=== PATIENT | female | born 1955 | race Caucasian/White ===

== ENCOUNTER → 2016-10-15 | Outpatient (CLI) | payer BC ==
[~2016-10-15] MED LIST: ANAS1TAB6 PO; IBUP600T44 PO; PROC1TAB5 PO
[2016-10-15 14:10] VITALS: BP 123/78; PULSE 74; TEMP 36.7; O2SAT 95
--- NOTE | 2016-10-15 15:21 | Radiation Oncology Follow-Up ---
Radiation Oncology Follow-Up Date of Visit Oct 15, 2016. Reason For Visit Ms. Esquivel is seen in follow-up today for her regularly scheduled follow-up visit. Radiation Completion Date finished 03-12-2016 History of Present Illness Ms. Esquivel is a 61-year-old female who has a family history of breast cancer. The patient's mother was diagnosed at age 80 with breast cancer. She was treated with surgery and radiation and is presently alive without disease at age 94. She has 2 sisters ages 63 and 66 who are alive and well without history of breast cancer. The patient unfortunately had her most recent screening mammogram over 20 years ago. She recently noted a palpable mass in the right breast self detected in June 2015. She underwent bilateral digital mammograms and targeted bilateral ultrasounds on 07/13/2015. Mammogram of the left breast demonstrated a small, 2 mm cluster of predominantly punctate calcifications in the left upper outer quadrant. These were felt to be probably benign. In the left upper outer quadrant anteriorly 8-10 mm oval mass with obscured margins was noted. In addition a possible 7 mm oval mass with obscured margins was noted in the left central breast middle depth. In the right breast a palpable mass was identified. This was irregular and measured 3.4 cm. At the site of this lesion pleomorphic calcifications were noted within the mass as well as extending anterior and posterior to the mass. The extent of the calcifications measured at least 8.8 cm. The mass and calcifications were highly suspicious for malignancy. In the right middle breast at approximately 3 o'clock position there are 2 adjacent irregular non- circumscribed masses measuring 1.3 and 1.5 cm. Pleomorphic calcifications are also seen in association with these masses and these are also highly suspicious for malignancy. Targeted ultrasound of the palpable lump in the right breast revealed an irregular hypoechoic solid mass which was difficult to measure but was at least 3.6 cm. This correlated with the mammographic mass and was highly suspicious for malignancy. In the right breast at the 3 o'clock position 3 cm from the nipple was an irregular hypoechoic solid mass measuring 1.1 x 0.9 x 0.9 cm and adjacent to this approximate 2 cm from the nipple is another irregular hypoechoic solid mass seen which measures 1.2 x 1.0 x 1.0 cm. These 2 masses are highly suspicious for malignancy by ultrasound criteria. Targeted ultrasound was performed of the right axilla. In the right upper-outer quadrant approximate 10-11 cm in the nipple were 2 adjacent rounded masses. One measured 0.8 x 0.8 cm and the other measured 0.8 x 0.6 cm. It was unclear if these represented abnormal low right axillary lymph nodes versus satellite lesions. Recommended ultrasound-guided biopsies of the axilla and breast masses was made. Targeted ultrasound of the left breast revealed a hypoechoic solid appearing mass measuring 1.0 x 0.8 x 1.0 cm it corresponded to the mammographic masses and was indeterminate. Recommended ultrasound-guided biopsy for further evaluation. Targeted ultrasound was performed to the left central breast in the region of the other mammographic mass however no sonographic correlate was seen. On 07/26/2015 the patient underwent biopsy of the right breast 10 o'clock position, biopsy of the right upper outer quadrant/low axillary mass, biopsy of the right 3:00 breast mass and biopsy of the left upper outer quadrant breast mass at the 2 to 3 o'clock position. The final diagnosis of the right breast 10 :00 mass revealed an infiltrating ductal carcinoma Jennifer grade 2 of 3. The tumor measured up to 1.1 cm on the core biopsy. DCIS was noted solid with focal necrosis and nuclear grade 2 of 3. No lymphovascular invasion was identified and no LCIS was identified. The microcalcifications were associated with the DCIS. Estrogen receptors were positive (>90%, strong). Progesterone receptors were positive (90%, moderate to strong). HER-2/gilles overexpression was 2+ (20%, moderate). Biopsy of the right upper outer quadrant/low axillary mass was positive for moderately differentiated ductal carcinoma. Biopsy of the right 3:00 breast mass revealed infiltrating ductal carcinoma Hackberry grade 3 of 3 measuring up to 0.9 cm on the core biopsy. DCIS was identified solid with necrosis and nuclear grade 2 of 3. No lymphovascular invasion was noted. Estrogen receptor positive (90%, strong). Progesterone receptor was positive (70%, moderate). HER-2/gilles overexpression was negative (0). Biopsy of the left breast upper-outer quadrant 2 to 3 o'clock position revealed fibroadenoma negative for DCIS and negative for invasive carcinoma. The tumors at the 3:00 and 10 o'clock position were both negative for HER-2/gilles amplification by FISH. Case: [id number]. On 08/07/2015 patient underwent a staging PET/CT scan. This revealed a total of 5 FDG avid lesions within the right breast with a dominant mass within the upper-outer quadrant measuring 3.5 cm with an SUV max of 14.5. There are at least 5 FDG avid right axillary nodes. The dominant lymph node measures 1.2 x 1.7 cm with an SUV max of 6. There is a single FDG avid right subpectoral lymph node measuring 0.9 cm. No abnormal uptake is noted within the left breast abdomen or pelvis. No FDG avid bony lesions appreciated. The patient was seen by Dr. Ferreira. He recommended right simple breast mastectomy with axillary staging. This was performed on 08/11/2015. 2 primary right breast tumors were noted. Tumor #1 was at the 10 o'clock position and was an invasive ductal carcinoma, Jennifer grade 3 of 3 measuring 3.5 cm. There was some admixed DCIS present but no extensive DCIS and no LCIS. The margins were negative at 1.5 cm or greater. There was no lymphovascular or perineural invasion identified. Tumor #2 was the 3 o'clock position was an invasive ductal carcinoma Hackberry grade 3 of 3 with some micropapillary features. The tumor measured 1.5 cm with some admixed DCIS but no extensive DCIS and no LCIS identified. The margin was negative at 1.5 cm or greater. Lymphovascular invasion could not be excluded but no perineural invasion was identified. There was no skin or nipple involvement and no muscle involvement. A total of 24 lymph nodes were excised. 10 of which contained metastatic deposits all macro metastatic. The largest measured 3.0 cm. There was no evidence of extranodal extension. The final pathologic stage was therefore a Pt2 pN3. 2 of the 4 breast tumors identified grossly are consistent with lymph nodes replaced by metastatic carcinoma. Case: [id number]. Patient was seen by Dr. Valencia for consideration of adjuvant systemic chemotherapy on 08/30/2015.. He recommended consideration of dose dense Adriamycin, Cytoxan followed by Taxol. This would be followed by 5 years of anastrozole. The patient agreed and started her systemic chemotherapy. She has received her last course of chemotherapy yesterday December 25 and appeared to have tolerated the chemotherapy extremely well. We were asked to see the patient at this time for consideration of the role of adjuvant radiation. It is for this reason a referral. She completed her systemic chemotherapy and return to our office to undergo radiation therapy. Treatment was completed 03/12/2016 she received 6240 cGy. patient returned for follow-up visit at 1 month on 04/12/2016. She has been doing well over this past month. These skin irritation is steadily improving. She states there is still some dry skin with darker pigmentation. She has noticed no masses or tenderness no change of the axilla she does not notice any swelling of her arm. She was seen at lymphedema clinic she was given therapy and instruction on prevention of lymphedema. She stated that she has been discharged from that clinic. She was seen at medical oncology and has started on anastrozole. She denies any side effects to the medication. She did have a DEXA scan prior to the initiation of medication. She also had mammography of the left breast in January. Interim History Since her last follow-up visit in March patient has continued to do well. She does continue on daily Arimidex and is tolerating this well. She underwent a unilateral left digital diagnostic hemogram with topical synthesis and CAD on . This showed a small 2 mm cluster of punctate calcifications in the left upper outer quadrant that was stable dating back to 2014. A circumscribed mass with associated biopsy marker clip was noted in the left 2:00 periareolar breast tissue which is also stable and is the site of a previous negative biopsy. Patient describes no complaint of right wall tenderness. She does note some continued radiation changes that continue to gradually heal. She denies any other changes or complaints associated with her radiation treatments. Allergies Coded Allergies: No Known Allergies (Unverified , 11/27/15) Home Medications Scheduled Anastrozole (Anastrozole), 1 TAB PO DAILY Scheduled PRN Ibuprofen (Motrin), 600 MG PO BID PRN for Pain Prochlorperazine Maleate (Compazine), 1 TAB PO Q6-8 hours PRN for Nausea or Vomiting Review of Systems Gastrointestinal: Symptoms: WNL Oral: Symptoms: No Problems Respiratory: Symptoms: WNL Urinary: Symptoms: WNL Skin: Symptoms: No Problems Breast: Right Upper Arm Measurement: 37.2 Right Mid Arm Measurement: 26.0 Right Wrist Measurement: 18.5 Left Upper Arm Measurement: 37.0 Left Mid Arm Measurement: 27.0 Left Wrist Measurement: 18.5 Arm Dominence: Right Patient Cosmetic Evaluation: Good Staff Cosmetic Evalaluation: Good Physical Exam Vital Signs Date Time Temp Pulse Resp B/P Pulse Ox O2 Delivery O2 Flow Rate FiO2 10/15/16 14:10 36.7 74 20 123/78 95 Pain: Side: Bilateral Patient Pain Scale: 0 - 10 Initial Pain Intensity: 0.0 Fatigue: None General Appearance: WD/WN, no apparent distress Eyes: normal inspection ENT: normal ENT inspection, pharynx normal Neck: supple, no adenopathy Respiratory/Chest: chest non-tender, lungs clear, normal breath sounds Breast: The left breast is without palpable masses or skin changes. The right chest wall shows some persistent hyperpigmentation. There is also some skin edema surrounding the mastectomy incision. There is no rib or chest wall tenderness to percussion. There are no evidence of palpable axillary adenopathy appreciated. 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 History of right mastectomy. TECHNIQUE: Breast tomosynthesis, in addition to standard 2D mammography was performed.. Current study was also evaluated with a Computer Aided Detection ( CAD) system. Left CC and MLO 2-D and tomosynthesis images and spot magnification left CC and ML views were obtained. COMPARISON: Comparison is made to exams dated: 02/14/2016 mammogram, 07/13/2015 mammogram, 07/26/2015 ultrasound biopsy, 07/26/2015 mammogram, 07/26/2015 ultrasound biopsy, and 07/13/2015 ultrasound - [facility]. BREAST COMPOSITION: There are scattered areas of fibroglandular density in the left breast. FINDINGS: Small 2 mm cluster of punctate calcifications in the left upper outer quadrant is stable dating back to the June 2015 exam, and is probably benign given the morphology and stability. Nodular 7 mm asymmetry seen within the central left breast middle depth, best seen on the cc view, is also stable dating back to the June 2015 exam and is probably benign. Circumscribed mass with associated biopsy marker clip in the left 2:00 periareolar breast is also stable; this was previously biopsied which yielded benign pathology. The remainder of the left breast is stable compared to prior exams, without suspicious masses, calcifications, or areas of architectural distortion noted. IMPRESSION: IMPRESSION: ACR-BI-RADS CATEGORY 3: PROBABLY BENIGN Small cluster of punctate calcifications in the left upper outer quadrant and nodular asymmetry in the left central breast are stable dating back to the June 2015 exam and are probably benign. However, longer stability is needed , especially given the personal history of right breast cancer, therefore recommend diagnostic mammograms of the left breast and possible ultrasound in 6 months to reevaluate. The patient has been verbally notified of the results. Assessment & Plan The patient will continue on her Arimidex. She is scheduled to see Dr. Valencia in follow-up in a month. She will continue with mammogram follow-ups as recommended. We would like to see her in follow-up in one year's time or sooner if indicated. Total Time In Follow-Up I spent 15 minutes in evaluation and discussion and 10 minutes reviewing her chart and mammograms and in preparation of this document. Copy To Karson Ferreira M.D.; Moses Valencia D.O.; Smiley Long N.P.
== END | disposition home or self-care (01) ==
LOC: C.ONC 13:56
PROVIDERS: ATTEND Radiology Radiation Oncology
DX: Z08 Encounter for follow-up examination after completed treatment for malignant neoplasm (principal); Z92.3 Personal history of irradiation; Z85.3 Personal history of malignant neoplasm of breast

== ENCOUNTER → 2017-02-18 | Outpatient (CLI) | payer BC ==
--- NOTE | 2017-02-18 14:57 | MAMMOGRAPHY REPORT ---
UNILATERAL LEFT DIGITAL DIAGNOSTIC MAMMOGRAM TOMOSYNTHESIS WITH CAD: 02/18/2017 CLINICAL HISTORY: Follow-up of a small cluster of punctate microcalcifications in the upper outer qu adrant of the left breast, and nodular asymmetry in the central left breast. Personal history of ri ght breast cancer status post mastectomy. TECHNIQUE: Left CC and MLO 2-D digital and tomosynthesis images, spot magnification left CC and MLO views were obtained. Current study was also evaluated with a Computer Aided Detection (CAD) system. COMPARISON: Comparison is made to exams dated: 08/21/2016 mammogram, 02/14/2016 mammogram, 07/26/2015 ultrasound biopsy, 07/26/2015 mammogram, 07/13/2015 mammogram, and 07/13/2015 ultrasound - [facility]. BREAST COMPOSITION: There are scattered areas of fibroglandular density in the left breast. FINDINGS: There is a stable metallic biopsy marker associated with a partially circumscribed and obs cured mass in the anterior left breast, denoting the biopsy proven fibroadenoma. The nodular asymme try in the central left breast as seen on prior CC views is no longer identified and there is no per sistent mass on the corresponding tomosynthesis images, suggesting it represented normal overlapping tissue. A small cluster of punctate microcalcifications in the upper outer middle one third of the left breast appears similar based on spot magnification views dating back to at least 07/13/2015, t herefore likely benign. Another 12 month follow-up diagnostic mammogram including spot magnificatio n views is recommended to ensure longer stability. No new suspicious mass, architectural distortion or cluster of microcalcifications is seen. IMPRESSION: ACR-BI-RADS CATEGORY 3: PROBABLY BENIGN 1. A nodular asymmetry in the central left breast is no longer seen, confirming benignity. 2. A small cluster of punctate microcalcifications in the upper outer quadrant of the left breast i s unchanged dating back to at least 07/13/2015. Another 12 month follow-up diagnostic mammogram inc luding spot magnification views is recommended to ensure longer stability. 3. No other significant interval mammographic change seen within the left breast. These results and recommendations were discussed with the patient at the time of the exam. Approximately 10% of breast cancers are not detected with mammography. A negative mammographic repor t should not delay biopsy if a clinically suggestive mass is present. Ofelia Mcpherson M.D. ay/:02/18/2017 09:09:53 Earth Sciences Professor: Milo FRANZ(R)(M), [facility] letter sent: Follow Up Recommended 3 BI-RADS Code: ACR-BI-RADS Category 3: Probably Benign
== END | disposition home or self-care (01) ==
LOC: C.MAMM 08:26
PROVIDERS: ATTEND Surgery
DX: Z08 Encounter for follow-up examination after completed treatment for malignant neoplasm (principal); Z92.3 Personal history of irradiation; Z85.3 Personal history of malignant neoplasm of breast; R92.0 Mammographic microcalcification found on diagnostic imaging of breast; N64.89 Other specified disorders of breast; Z90.11 Acquired absence of right breast and nipple

== ENCOUNTER → 2017-08-22 | Outpatient (CLI) | payer BC ==
--- NOTE | 2017-08-22 13:53 | MAMMOGRAPHY REPORT ---
UNILATERAL LEFT DIGITAL DIAGNOSTIC MAMMOGRAM TOMOSYNTHESIS WITH CAD: 08/22/2017 CLINICAL HISTORY: Short interval follow-up left breast calcifications. The patient reports no curren t complaints. History of right mastectomy. TECHNIQUE: Breast tomosynthesis in addition to standard 2D mammography was performed. Current study was also evaluated with a Computer Aided Detection (CAD) system. Left CC and MLO 2-D and tomosynthes is images and spot magnification left CC and ML views were obtained. COMPARISON: Comparison is made to exams dated: 02/18/2017 mammogram, 02/14/2016 mammogram, 07/26/2015 u ltrasound biopsy, 07/26/2015 mammogram, and 07/13/2015 ultrasound - [facility]. BREAST COMPOSITION: There are scattered areas of fibroglandular density in the left breast. FINDINGS: The previously described small cluster of punctate benign appearing calcifications in the l eft upper outer quadrant is stable dating back to at least the June 2015 exam, and is considered b enign given the morphology and long-term stability. The remainder of the left breast is stable trevin red to prior exams, without suspicious masses, calcifications, or areas of architectural distortion n oted. A mass with an associated biopsy marker clip in the left anterior breast is not significantly changed. Nodular asymmetry seen within the left central breast is stable to less prominent compared to the June 2015 exam. IMPRESSION: ACR BI-RADS CATEGORY 2: BENIGN Small cluster of calcifications in the left upper outer quadrant is stable dating back to the June 2015 exam, and considered benign given the morphology and long-term stability. There is no mammogra phic evidence of malignancy in the left breast. A 1 year screening mammogram is recommended. The [facility] ient has been verbally notified of the results. Approximately 10% of breast cancers are not detected with mammography. A negative mammographic report should not delay biopsy if a clinically suggestive mass is present. Christen Freire M.D. /:08/22/2017 12:09:50 Metal Organ Pipe Maker: Kyleigh Overton, [facility] letter sent: Normal 1/2 BI-RADS Code: ACR BI-RADS Category 2: Benign
== END | disposition home or self-care (01) ==
LOC: C.MAMM 10:42
PROVIDERS: ATTEND Surgery
DX: R92.1 Mammographic calcification found on diagnostic imaging of breast (principal); Z90.11 Acquired absence of right breast and nipple

== ENCOUNTER → 2017-10-23 | Outpatient (CLI) | payer BC, OTHER ==
[~2017-10-23] MED LIST changes: +ANAS1TAB19 PO; +CHOL400T PO
[2017-10-23 14:18] VITALS: BP 111/72; PULSE 88; TEMP 36.7; O2SAT 95
--- NOTE | 2017-10-23 16:16 | Radiation Oncology Follow-Up ---
Radiation Oncology Follow-Up Date of Visit Oct 23, 2017. Reason For Visit annual follow up Radiation Completion Date 03/12/16 Diagnosis (1) Breast cancer Status: Acute Onset Date: 07/26/2015 Stage: lll (C) Permanent Comment: Abnormal right breast mammogram Status post biopsy revealing infiltrating ductal carcinoma 2 separate lesions Estrogen receptor positive, progesterone receptor positive, HER-2/gilles negative Status post right simple mastectomy and axillary lymph node dissection 2014 Stage pT2 pN3 M0 Status post systemic chemotherapy dose dense Adriamycin and Cytoxan followed by Taxol Status post completion of radiation therapy 03/12/2016 received 6240 cGy Last Edited By: Jeniffer Fischer on Apr 02, 2016 11:31 History of Present Illness Ms. Esquivel is a 61-year-old female who has a family history of breast cancer. The patient's mother was diagnosed at age 80 with breast cancer. She was treated with surgery and radiation and is presently alive without disease at age 94. She has 2 sisters ages 63 and 66 who are alive and well without history of breast cancer. The patient unfortunately had her most recent screening mammogram over 20 years ago. She recently noted a palpable mass in the right breast self detected in June 2015. She underwent bilateral digital mammograms and targeted bilateral ultrasounds on 07/13/2015. Mammogram of the left breast demonstrated a small, 2 mm cluster of predominantly punctate calcifications in the left upper outer quadrant. These were felt to be probably benign. In the left upper outer quadrant anteriorly 8-10 mm oval mass with obscured margins was noted. In addition a possible 7 mm oval mass with obscured margins was noted in the left central breast middle depth. In the right breast a palpable mass was identified. This was irregular and measured 3.4 cm. At the site of this lesion pleomorphic calcifications were noted within the mass as well as extending anterior and posterior to the mass. The extent of the calcifications measured at least 8.8 cm. The mass and calcifications were highly suspicious for malignancy. In the right middle breast at approximately 3 o'clock position there are 2 adjacent irregular non- circumscribed masses measuring 1.3 and 1.5 cm. Pleomorphic calcifications are also seen in association with these masses and these are also highly suspicious for malignancy. Targeted ultrasound of the palpable lump in the right breast revealed an irregular hypoechoic solid mass which was difficult to measure but was at least 3.6 cm. This correlated with the mammographic mass and was highly suspicious for malignancy. In the right breast at the 3 o'clock position 3 cm from the nipple was an irregular hypoechoic solid mass measuring 1.1 x 0.9 x 0.9 cm and adjacent to this approximate 2 cm from the nipple is another irregular hypoechoic solid mass seen which measures 1.2 x 1.0 x 1.0 cm. These 2 masses are highly suspicious for malignancy by ultrasound criteria. Targeted ultrasound was performed of the right axilla. In the right upper-outer quadrant approximate 10-11 cm in the nipple were 2 adjacent rounded masses. One measured 0.8 x 0.8 cm and the other measured 0.8 x 0.6 cm. It was unclear if these represented abnormal low right axillary lymph nodes versus satellite lesions. Recommended ultrasound-guided biopsies of the axilla and breast masses was made. Targeted ultrasound of the left breast revealed a hypoechoic solid appearing mass measuring 1.0 x 0.8 x 1.0 cm it corresponded to the mammographic masses and was indeterminate. Recommended ultrasound-guided biopsy for further evaluation. Targeted ultrasound was performed to the left central breast in the region of the other mammographic mass however no sonographic correlate was seen. On 07/26/2015 the patient underwent biopsy of the right breast 10 o'clock position, biopsy of the right upper outer quadrant/low axillary mass, biopsy of the right 3:00 breast mass and biopsy of the left upper outer quadrant breast mass at the 2 to 3 o'clock position. The final diagnosis of the right breast 10 :00 mass revealed an infiltrating ductal carcinoma Jennifer grade 2 of 3. The tumor measured up to 1.1 cm on the core biopsy. DCIS was noted solid with focal necrosis and nuclear grade 2 of 3. No lymphovascular invasion was identified and no LCIS was identified. The microcalcifications were associated with the DCIS. Estrogen receptors were positive (>90%, strong). Progesterone receptors were positive (90%, moderate to strong). HER-2/gilles overexpression was 2+ (20%, moderate). Biopsy of the right upper outer quadrant/low axillary mass was positive for moderately differentiated ductal carcinoma. Biopsy of the right 3:00 breast mass revealed infiltrating ductal carcinoma Jennifer grade 3 of 3 measuring up to 0.9 cm on the core biopsy. DCIS was identified solid with necrosis and nuclear grade 2 of 3. No lymphovascular invasion was noted. Estrogen receptor positive (90%, strong). Progesterone receptor was positive (70%, moderate). HER-2/gilles overexpression was negative (0). Biopsy of the left breast upper-outer quadrant 2 to 3 o'clock position revealed fibroadenoma negative for DCIS and negative for invasive carcinoma. The tumors at the 3:00 and 10 o'clock position were both negative for HER-2/gilles amplification by FISH. Case: [id number]. On 08/07/2015 patient underwent a staging PET/CT scan. This revealed a total of 5 FDG avid lesions within the right breast with a dominant mass within the upper-outer quadrant measuring 3.5 cm with an SUV max of 14.5. There are at least 5 FDG avid right axillary nodes. The dominant lymph node measures 1.2 x 1.7 cm with an SUV max of 6. There is a single FDG avid right subpectoral lymph node measuring 0.9 cm. No abnormal uptake is noted within the left breast abdomen or pelvis. No FDG avid bony lesions appreciated. The patient was seen by Dr. Ferreira. He recommended right simple breast mastectomy with axillary staging. This was performed on 08/11/2015. 2 primary right breast tumors were noted. Tumor #1 was at the 10 o'clock position and was an invasive ductal carcinoma, Jennifer grade 3 of 3 measuring 3.5 cm. There was some admixed DCIS present but no extensive DCIS and no LCIS. The margins were negative at 1.5 cm or greater. There was no lymphovascular or perineural invasion identified. Tumor #2 was the 3 o'clock position was an invasive ductal carcinoma Eighty Eight grade 3 of 3 with some micropapillary features. The tumor measured 1.5 cm with some admixed DCIS but no extensive DCIS and no LCIS identified. The margin was negative at 1.5 cm or greater. Lymphovascular invasion could not be excluded but no perineural invasion was identified. There was no skin or nipple involvement and no muscle involvement. A total of 24 lymph nodes were excised. 10 of which contained metastatic deposits all macro metastatic. The largest measured 3.0 cm. There was no evidence of extranodal extension. The final pathologic stage was therefore a Pt2 pN3. 2 of the 4 breast tumors identified grossly are consistent with lymph nodes replaced by metastatic carcinoma. Case: [id number]. Patient was seen by Dr. Valencia for consideration of adjuvant systemic chemotherapy on 08/30/2015.. He recommended consideration of dose dense Adriamycin, Cytoxan followed by Taxol. This would be followed by 5 years of anastrozole. The patient agreed and started her systemic chemotherapy. She has received her last course of chemotherapy yesterday December 25 and appeared to have tolerated the chemotherapy extremely well. We were asked to see the patient at this time for consideration of the role of adjuvant radiation. It is for this reason a referral. She completed her systemic chemotherapy and return to our office to undergo radiation therapy. Treatment was completed 03/12/2016 she received 6240 cGy. Interim History She has been doing well over the past 6 months. She is on Arimidex and denies side effects. She noticed no changes to the chest wall. She has noted no masses or tenderness and no change of the axilla. She has noted no swelling of her arm. She is up-to-date for mammography for the left breast. She had questions today in regards to repetition's movement of her arms. 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 She wanted to discuss concerned she has about overusing her arm. She enjoys doing her craft but is concerned that she may cause lymphedema. Allergies Coded Allergies: No Known Allergies (Unverified , 11/27/15) Home Medications Scheduled Anastrozole (Arimidex), 1 TAB PO DAILY Review of Systems Gastrointestinal: Symptoms: WNL Oral: Symptoms: No Problems Respiratory: Symptoms: WNL Urinary: Symptoms: WNL Skin: Symptoms: No Problems Breast: Right Upper Arm Measurement: 36.0 Right Mid Arm Measurement: 27.5 Right Wrist Measurement: 18.5 Left Upper Arm Measurement: 34.0 Left Mid Arm Measurement: 27.0 Left Wrist Measurement: 18.5 Arm Dominence: Right Physical Exam Vital Signs Date Time Temp Pulse Resp B/P (MAP) Pulse Ox O2 Delivery O2 Flow Rate FiO2 10/23/17 14:18 36.7 88 20 111/72 95 Fatigue: None General Appearance: no apparent distress Eyes: normal inspection, EOMI ENT: normal ENT inspection, hearing grossly normal Neck: no adenopathy, thyroid normal Respiratory/Chest: lungs clear, no respiratory distress, no accessory muscle use Breast: Examination on the right reveals status post mastectomy. There is resolving hyperpigmentation and mild dryness of the skin. There are no masses or tenderness and no axillary adenopathy. There are no areas of tenderness. There are no concerning lesions of the skin. The left breast showed no masses or tenderness and no axillary adenopathy. Cardiovascular: regular rate, rhythm, no gallop, no murmur Extremities: no pedal edema Neurologic/Psychiatric: no motor/sensory deficits, alert, normal mood/affect Skin: warm/dry Pain Management Patient Reports Pain: No Pain Location: None Patient Preferred Pain Scale: 0 - 10 Initial Pain Intensity: 0.0 Pain Management Plan She denies pain therefore requires no pain management. Laboratory Laboratory Results: not applicable Pathology Pathology Results: not applicable Imaging Imaging Studies: were reviewed, and pertinent findings noted below Imaging Comments Patient: ZUNILDA ESQUIVEL [facility] Rec: [id number] Address1: [address] [place] [address] Address2: [facility] ID: [id number] Date: 1955 Sex: F Ref Phy: Karson Ferreira M.D. Att Phy: Karson Ferreira M.D. Sindy Phy: No Doctor, Assigned Inter Phy: Christen Freire MD [facility] Zip: [place] [address] SC: C.MAMM Report #: [id number] Lead Driver: MAYCOL Diagnosis: 6 MONTH F/U LEFT Service Date: 08/22/17 MNE: [id number] Ordering Dr: Karson Ferreira M.D. CC: Karson Ferreira M.D. CONF: DICTATED BY: Christen Freire MD MAMMOGRAPHY REPORT UNILATERAL LEFT DIGITAL DIAGNOSTIC MAMMOGRAM TOMOSYNTHESIS WITH CAD: 08/22/2017 CLINICAL HISTORY: Short interval follow-up left breast calcifications. The patient reports no current complaints. History of right mastectomy. TECHNIQUE: Breast tomosynthesis in addition to standard 2D mammography was performed. Current study was also evaluated with a Computer Aided Detection (CAD ) system. Left CC and MLO 2-D and tomosynthesis images and spot magnification left CC and ML views were obtained. COMPARISON: Comparison is made to exams dated: 02/18/2017 mammogram, 02/14/2016 mammogram, 07/26/2015 ultrasound biopsy, 07/26/2015 mammogram, and 07/13/2015 ultrasound - [facility]. BREAST COMPOSITION: There are scattered areas of fibroglandular density in the left breast. FINDINGS: The previously described small cluster of punctate benign appearing calcifications in the left upper outer quadrant is stable dating back to at least the June 2015 exam, and is considered benign given the morphology and long-term stability. The remainder of the left breast is stable compared to prior exams, without suspicious masses, calcifications, or areas of architectural distortion noted. A mass with an associated biopsy marker clip in the left anterior breast is not significantly changed. Nodular asymmetry seen within the left central breast is stable to less prominent compared to the June 2015 exam. IMPRESSION: ACR BI-RADS CATEGORY 2: BENIGN Small cluster of calcifications in the left upper outer quadrant is stable dating back to the June 2015 exam, and considered benign given the morphology and long-term stability. There is no mammographic evidence of malignancy in the left breast. A 1 year screening mammogram is recommended. The patient has been verbally notified of the results. Approximately 10% of breast cancers are not detected with mammography. A negative mammographic report should not delay biopsy if a clinically suggestive mass is present. Christen Freire M.D. ah/:08/22/2017 12:09:50 All Round Butcher: Kyleigh Overton, [facility] letter sent: Normal 1/2 BI-RADS Code: ACR BI-RADS Category 2: Benign Dictated by: Christen Freire MD Signed by: Christen Freire MD Assessment & Plan Plan: Continue annual mammography of the left breast. She'll continue on Arimidex. We reviewed her arm measurements. There has been no change in the size of her right arm over the past 3 years. It is larger of the left and she is right-handed. We discussed the repetitions work that can be related to her art projects. In discussing with her the amount of activity does not appear to be a concern. She is able to often take breaks. She can apply the paint or ink and use her arm for short periods of time and then take a break. She does not do any heavy strenuous work such as shoveling snow or raking leaves. We asked to return to our office in 1 year. Total Time In Follow-Up I spent 20 minutes speaking to the patient performing examination. I spent 15 minutes reviewing information in completing this note. Copy To Karson Ferreira M.D.; Moses Valencia D.O.; Smiley Long,N.P. Problem Qualifiers (1) Breast cancer: Breast location: upper outer quadrant of breast Estrogen receptor status: positive Patient sex: female Laterality: right Qualified Codes: C50.411 - Malignant neoplasm of upper-outer quadrant of right female breast; Z17.0 - Estrogen receptor positive status [ER+]
== END | disposition home or self-care (01) ==
LOC: C.ONC 13:57
PROVIDERS: ATTEND Physician Assistant Medical
DX: Z08 Encounter for follow-up examination after completed treatment for malignant neoplasm (principal); Z92.3 Personal history of irradiation; Z85.3 Personal history of malignant neoplasm of breast